=== PATIENT | female | born 1935 | race Caucasian/White ===

== ENCOUNTER → 2020-02-04 | Outpatient (CLI) | payer MEDICARE, BC ==
[~2020-02-04] VITALS: Ht 160 cm; Wt 72.6 kg
== END ==
LOC: OPSV 02-02 14:00
DX: M81.0 Age-related osteoporosis without current pathological fracture (principal)
CPT/HCPCS: 96372

== ENCOUNTER → 2020-08-05 | Outpatient (CLI) | payer MEDICARE, BC ==
[~2020-08-05] VITALS: Ht 157.5 cm; Wt 71.7 kg
== END ==
LOC: OPSV 10:57
DX: M81.0 Age-related osteoporosis without current pathological fracture (principal)
CPT/HCPCS: 96372

== ENCOUNTER → 2020-10-14 | Outpatient (CLI) | payer MEDICARE, BC | LOC: MAMO 14:00 | DX: Z12.31 Encounter for screening mammogram for malignant neoplasm of breast (principal) | CPT/HCPCS: 77063; 77067 ==

== ENCOUNTER → 2021-03-10 | Outpatient (CLI) | payer MEDICARE, BC | LOC: OPSV 13:00 | DX: M81.0 Age-related osteoporosis without current pathological fracture (principal) | CPT/HCPCS: 96372 ==

== ENCOUNTER → 2021-07-13 | Outpatient (CLI) | payer MEDICARE, BC | LOC: MRI 10:32 → EMI 10:32 → MRI 11:00 | DX: R41.3 Other amnesia (principal); G45.9 Transient cerebral ischemic attack, unspecified; F01.50 Vascular dementia, unspecified severity, without behavioral disturbance, psychotic disturbance, mood disturbance, and anxiety; G31.9 Degenerative disease of nervous system, unspecified | CPT/HCPCS: 36415; 70551; 82565; 84520 ==